=== PATIENT | male | born 1990 | race Caucasian/White ===

== ENCOUNTER 2019-04-23 22:21 | Emergency (ER) | payer BC ==
[2019-04-23] MEDS ORDERED: Diphtheria,Pertussis(Acell),Tetanus Vaccine 0.5 ML SDV IM ONE (23:53)
[2019-04-23] MEDS ORDERED: Bacitracin Oint 1 GM U/D Packet TOP ONE (23:53)
--- NOTE | 2019-04-24 00:05 | EDM.PDOC ---
ED HPI GENERAL MEDICAL PROBLEM - General Chief Complaint: General Stated Complaint: STEPPED ON NAIL RT FOOT [id number] Time Seen by Provider: 04/23/19 22:45 Source of Information: Reports: Patient History Limitations: Reports: No Limitations - History of Present Illness INITIAL COMMENTS - FREE TEXT/NARRATIVE: States working on repairing deck and stepped on a old nail that went through tennis shoe approximately 8pm tonight. Unsure of last tetnus immunization. puncture wound to right foot. - Related Data Allergies Allergy/AdvReac Type Severity Reaction Status Date / Time No Known Allergies Allergy Verified 04/23/19 22:37 Home Meds: Home Meds . [No Known Home Meds] 04/23/19 [History] Past Medical History - Past Health History Medical/Surgical History: Denies Medical/Surgical History Social & Family History - Family History Family Medical History: Noncontributory - Tobacco Use Smoking Status *Q: Never Smoker Second Hand Smoke Exposure: No - Caffeine Use Caffeine Use: Reports: Soda, Tea - Alcohol Use Days Per Week of Alcohol Use: 2 Number of Drinks Per Day: 2 Total Drinks Per Week: 4 - Recreational Drug Use Recreational Drug Use: No ED ROS GENERAL - Review of Systems Review Of Systems: ROS reveals no pertinent complaints other than HPI. ED EXAM, GENERAL - Physical Exam Exam: See Below General Appearance: Alert, No Apparent Distress Eye Exam: Bilateral Eye: EOMI Ears: Hearing Grossly Normal Throat/Mouth: Normal Voice, No Airway Compromise Head: Atraumatic, Normocephalic Neck: Full Range of Motion Respiratory/Chest: No Respiratory Distress Cardiovascular: Normal Peripheral Pulses Neurological: Alert, Oriented, Normal Cognition Psychiatric: Normal Affect, Normal Mood Skin Exam: Warm, Dry, Normal Color, Wound/Incision (puncture wound right plantar proximal forefoot). No: Ecchymosis, Erythema Course - Vital Signs Last Recorded V/S: Last Vital Signs Temp 98.2 F 04/23/19 22:34 Pulse 87 04/23/19 22:34 Resp 16 04/23/19 22:34 BP 133/81 04/23/19 22:34 Pulse Ox 100 04/23/19 22:34 - Orders/Labs/Meds Orders: Active Orders 24 hr Category Date Time Status Vaccines to be Administered [RC] PER UNIT ROUTINE Care 04/23/19 23:53 Active Meds: Medications Discontinued Medications Generic Name Dose Route Start Last Admin Trade Name Richelle PRN Reason Stop Dose Admin Bacitracin 1 dose 04/23/19 23:53 04/24/19 00:02 Bacitracin Oint 1 Gm TOP 04/23/19 23:54 1 dose ONETIME ONE Administration Diphtheria/Tetanus/Acell Pertussis 0.5 ml 04/23/19 23:53 04/24/19 00:02 Adacel IM 04/23/19 23:54 0.5 ml .ONCE ONE Administration Departure - Departure Time of Disposition: 23:54 Disposition: Home, Self-Care 01 Condition: Good Clinical Impression: Puncture wound of foot Qualifiers: Encounter type: initial encounter Laterality: right Qualified Code(s): S91.331A - Puncture wound without foreign body, right foot, initial encounter - Discharge Information *PRESCRIPTION DRUG MONITORING PROGRAM REVIEWED*: No *COPY OF PRESCRIPTION DRUG MONITORING REPORT IN PATIENT SOY: No Referrals: PCP,None [Primary Care Provider] - Forms: ED Department Discharge Additional Instructions: soak twice daily until healed tylenol or ibuprofen alternating every 4 hours as needed for discomfort bacitracin twice daily to wound until healed follow up if any redness swelling, drainage or streaking. - My Orders Last 24 Hours: My Active Orders 04/23/19 23:53 Vaccines to be Administered [RC] PER UNIT ROUTINE - Assessment/Plan Last 24 Hours: My Active Orders 04/23/19 23:53 Vaccines to be Administered [RC] PER UNIT ROUTINE
== END 2019-04-24 00:02 | disposition home or self-care (01) ==
LOC: DL.ED 22:21
DX: S91.331A Puncture wound without foreign body, right foot, initial encounter (principal); W45.0XXA Nail entering through skin, initial encounter; Z23 Encounter for immunization
CPT/HCPCS: 90471; 90715; 99282